=== PATIENT | female | born 1990 | race Caucasian/White ===

== ENCOUNTER 2024-06-30 17:53 | Inpatient (IN) | payer OTHER, SELFPAY ==
[2024-06-30] MEDS: BETAMETHASONE ACE/BETAMETHASONE SOD PHOS 30 MG/5 ML 12 MG IM (18:47)
[2024-06-30 18:50] LABS: Bilirubin Urine SMALL (NEGATIVE); Blood Urine LARGE (NEGATIVE); Clarity Urine CLEAR (CLEAR); Color Urine DK. YELLOW (YELLOW); Glucose Urine UA NEGATIVE (NEGATIVE); Ketones Urine 15 mg/dL (NEGATIVE); Leukocyte Esterase Urine SMALL (NEGATIVE); Nitrite Urine NEGATIVE (NEGATIVE); Protein Urine NEGATIVE (NEG/TRACE); Specific Gravity Urine >=1.030 (1.005-1.025)
[2024-06-30 18:51] LABS: Urine Microscopic Indicated YES
[2024-06-30 18:59] LABS: Bacteria Urine SMALL #/HPF (NONE SEEN); Cast Seen? NONE SEEN #/LPF (NONE SEEN); Crystals Seen? None Seen #/HPF (None Seen); Mucus Urine LARGE (NONE SEEN); RBC Urine 0-2 #/HPF (0-2); Squamous Epithelial Cell Urine MODERATE #/LPF (NONE/RARE); Urine Culture Indicated YES
[2024-06-30] MEDS: LACTATED RINGER'S SOLUTION 1,000 ML 1000 ML IV (19:00)
[2024-06-30 19:05] LABS: Amphetamine Screen Urine NEGATIVE (NEGATIVE); Barbiturates Screen Urine NEGATIVE (NEGATIVE); Benzodiazepines Screen Urine NEGATIVE (NEGATIVE); Buprenorphine Screen Urine NEGATIVE (NEGATIVE); Cannabinoid Screen Urine NEGATIVE (NEGATIVE); Cocaine Screen Urine NEGATIVE (NEGATIVE); Methadone Screen Urine NEGATIVE (NEGATIVE); Methamphetamines Screen Urine NEGATIVE (NEGATIVE); Opiate Screen Urine NEGATIVE (NEGATIVE); Oxycodone Screen Urine NEGATIVE (NEGATIVE); Phencyclidine Screen Urine NEGATIVE (NEGATIVE); Tricyclic Antidepressant Urine NEGATIVE (NEGATIVE)
[2024-06-30 19:20] VITALS: BP 123/84; PULSE 92
[2024-06-30 19:30] VITALS: BP 123/84
[2024-06-30] MEDS: PENICILLIN G POTASSIUM 5,000,000 UNIT in 0.9 % SODIUM CHLORIDE 100 ML 200 UNIT IV (19:35)
[2024-06-30 20:00] LABS: Hematocrit 30.4 % (36.0-48.0); Hemoglobin 9.6 g/dL (12.0-16.0); Mean Corpuscular HGB Conc 31.6 g/dL (29.9-35.2); Mean Corpuscular Hemoglobin 22.4 pg (26.7-34.0); Mean Corpuscular Volume 70.9 fL (81.0-99.0); Mean Platelet Volume 11.3 fL (9.5-13.5); Platelet Count 254 10^3/uL (150-450); Red Blood Count 4.29 10^6/uL (4.20-5.40); Red Cell Distribution Width 17.2 % (11.0-15.0)
[2024-06-30 22:12] VITALS: BP 134/75; PULSE 95
[2024-06-30 22:39] VITALS: TEMP 36.4
[2024-06-30] MEDS: PENICILLIN G POTASSIUM 2,500,000 UNIT in 0.9 % SODIUM CHLORIDE 50 ML 100 UNIT IV (23:30)
[2024-07-01] VITALS (41 sets, daily range): BP systolic 84–142; BP diastolic 47–96; PULSE 73–118; TEMP 35.8–37.1
[2024-07-01] MEDS: LACTATED RINGER'S SOLUTION 1,000 ML 125 ML IV ×3 (00:13→13:15)
[2024-07-01] MEDS: PENICILLIN G POTASSIUM 2,500,000 UNIT in 0.9 % SODIUM CHLORIDE 50 ML 100 UNIT IV ×3 (03:21→11:59)
[2024-07-01] MEDS: OXYTOCIN/0.9 % SODIUM CHLORIDE 10 UNITS/500 ML PLAST..BAG 6 UNIT IV (03:35)
--- NOTE | 2024-07-01 07:10 | P.OBHP_ITS ---
OB - H&P: HPI History of Present Illness Chief complaint: Contractions : 7 Para: 5 Gestational age based on last menstrual period: patient stlates her LMP was 10/20/23 and not 10/24/23 Comments: patient messaged me yesterday afternoon and states she is going to the hospital as she is having contractions that are painful and about 4 mins apart. History of Present Dating criteria: LMP confirmed by 1st trimester US care: good care complications comment: patient has history of labor and de livery Labs Blood type: B (+) positive Rubella: immune RPR/VDLR: nonreactive GBS status: unknown HBsAG: negative Review of Systems ROS Status of ROS: 10 or more systems reviewed and unremarkable except as noted in history and below PFSH PFS Medical History (Updated 07/01/24 @ 07:20 by FELIX URIBE APRN, [facility]) Depression ?F32.A - Depression, unspecified (ICD-10) Anxiety ?F41.9 - Anxiety disorder, unspecified (ICD-10) Surgical History (Updated 07/01/24 @ 01:54 by Obinna Shukla) H/O gastric sleeve ?Z90.3 - Acquired absence of stomach [part of] (ICD-10) Social History (Updated 07/01/24 @ 01:54 by Obinna Shukla) Within the past year, how often did you have a drink containing alcohol: never Within the past year, how often did you have six or more drinks on one occasion: never Score interpretation: A score less than 3 is consistent with normal alcohol consumption. Smoking status: Former smoker Non-prescribed substance use: denies use Are you now , , , , never or living with a partner: living with partner In a typical week, how many times do you talk on the telephone with family, friends, or neighbors: 3 or more times per week How often do you get together with friends or relatives: 3 or more times per week How often do you attend mosque or gnosticism services: never Little interest or pleasure in doing things: not at all Feeling down, depressed, or hopeless: not at all Feel stressed/tense/nervous/anxious/difficulty sleeping: not at all Do you think of yourself as: straight/heterosexual Gender Identity: female Meds Home Medications and Allergies Allergies Allergy/AdvReac Type Severity Reaction Status Date / Time No Known Drug Allergies Allergy Verified 06/30/24 18:22 Exam Constitutional Vital Signs, click to edit/add: Last Vital Signs Temp 98.8 F 07/01/24 06:00 Pulse 86 07/01/24 03:35 Resp 18 07/01/24 06:00 BP 125/80 07/01/24 03:35 O2 Del Method Room Air 07/01/24 06:00 Common normals: no apparent distress, average body habitus, oriented x3, no limitations, healthy appearing, alert and well nourished General appearance: cooperative Orientation/consciousness: Yes awake, Yes oriented to person, Yes oriented to place and Yes oriented to time HENMT Common normals: normocephalic Eye Common normals: EOMs intact bilaterally Neck & C-Spine Common normals: full ROM and no lymphadenopathy Lymph Lymphatic: no lymphadenopathy noted Chest Common normals: inspection of chest normal Respiratory Common normals: normal respiratory effort Effort & inspection: able to speak in complete sentences Auscultation: clear to auscultation bilaterally Cardio Common normals: regular rate and regular rhythm Rate: regular rate Rhythm: regular rhythm GI Common normals: Normal to inspection, nondistended, normoactive bowel sounds present Palpation: soft and firm (with contractions ) Common normals: no CVA tenderness Back & Pelvis Common normals: no CVA tenderness Thoracic spine/upper back: normal to inspection Lumbar spine/lower back: normal to inspection Extremity Common normals: normal to inspection and full ROM Neuro Common normals: oriented x3 Sensorium/orientation: awake, alert, oriented to person, oriented to place and oriented to time Psych Common normals: mental status grossly normal, thought process normal, cooperative, affect normal, speech normal, activity/motor behavior normal, denies hallucinations, denies homicidal ideation and denies suicidal ideation Attitude: calm Speech: normal speech Thought process: normal thought process Results Labs Labs: Short CBC 06/30/24 Range/Units 18:55 WBC 12.0 H (4.0-11.0) 10^3/uL Hgb 9.6 L (12.0-16.0) g/dL Hct 30.4 L (36.0-48.0) % Plt Count 254 (150-450) 10^3/uL Urine 06/30/24 Range/Units 18:08 Urine Color Dk. yellow (YELLOW) Urine Clarity Clear (CLEAR) Urine pH 6.0 (5.0-9.0) Ur Specific [place] >=1.030 A (1.005-1.025) Urine Protein Negative (NEG/TRACE) mg/dL Urine Glucose (UA) Negative (NEGATIVE) mg/dL OB - A/P Assessment and Plan (1) Term : (2) 36 weeks gestation of :
--- NOTE | 2024-07-01 07:21 | PM.EN ---
Event Note Event Note: patient arrived to unit yesterday 1752 with c/o contractions and pain. She states the contractions were 4 mins apart and she decided to come to [facility] because the contractions are getting more uncomfortable and she has a history of contractions and delivery. When discussing her gestational age her as I had her LMP as 10/24/23 and UMA of 07/30/24. Patient states that is definitely wrong and pulls up calendar on her phone and shows me the LMP was 10/20/23 and it is highlighted on her calendar. She states the record is wrong, on 10/24/23 I was in the middle of my period not just starting it. With LMP of 10/20/23 her UMA would be 07/26/24. First trimester US has UMA of 07/30/24. With difference of of 4 days between US and patient stated LMP is 4 days. At this time patient is insistent that her LMP was 10/20/23 making her currently 36.2 weeks gestation. I had discussion with patient regarding transfer to [facility] for higher level of care if needed for baby and she refuses. I then explained plan of care to attempt to stop contractions due to being 36.2 and she refuses Procardia and states I've had that before and I hate it and the way it makes me feel, and I don't want it. I did discuss Celestone for increasing baby's lung surfactant and she does agree to that. She is ok receiving IV fluid bolus also. I also discussed starting antibiotics due to unknown GBS and patient is in agreement to that. [id number]/24 nurse reports to me patient has SROM and moderate amount of clear, odorless fluid noted per nurse.
--- NOTE | 2024-07-01 07:41 | PM.EN ---
Event Note Event Note: to room and SVE /-2 and large amount of clear, odorless fluid noted with exam. patient is breathing with contractions and stating they are tolerable at this time. She can tell the pitocin is increasing the intensity of contractions.
[2024-07-01] MEDS: NALBUPHINE HCL 10 MG/ML AMPULE IV (10:37)
[2024-07-01] MEDS: ROPIVACAINE HCL/PF 400 MG/200 ML PREMIX 6 MG EPIDURAL (13:15)
[2024-07-01] MEDS: OXYTOCIN/0.9 % SODIUM CHLORIDE 20 UNITS/1,000 ML PLAST..BAG 125 UNIT IV (13:49)
--- NOTE | 2024-07-01 13:53 | PM.OBPRCVD ---
Procedure Intrapartal events: None Induction method: none Delivery augmentation: pitocin Delivery monitor: external FHT and external uterine Route of delivery: Episiotomy Description: none L&D Laceration Description: none Estimated blood loss (mL): 200 Anesthesia type: Epidural Disposition: floor Delivery date: 07/01/24 Gender: female presentation: vertex Placental delivery description: Spontaneous cord description: 3 Vessels
[2024-07-01] MEDS: IBUPROFEN 600 MG TABLET PO ×2 (14:25→20:10)
[2024-07-01] MEDS: BENZOCAINE/MENTHOL 85 GRAM SPRAY BOTTLE 1 APPLIC TOPICAL (14:25)
[2024-07-01] MEDS: GLYCERIN/WITCH HAZEL PADS 1 PAD TOPICAL (14:25)
[2024-07-01] MEDS: ACETAMINOPHEN 325 MG TABLET 650 MG PO (23:31)
[2024-07-02] VITALS (8 sets, daily range): BP systolic 112–135; BP diastolic 70–85; PULSE 75–86; TEMP 36.6–37.2
[2024-07-02] MEDS: IBUPROFEN 600 MG TABLET PO ×3 (05:14→21:04)
[2024-07-02 06:13] LABS: Basophils Percent Auto 0.2 % (0.2-2.0); Eosinophils Percent Auto 0.4 % (0.9-7.0); Hematocrit 26.3 % (36.0-48.0); Hemoglobin 8.1 g/dL (12.0-16.0); Immature Granulocytes Abs Auto 0.15 10^3/uL (0.00-0.03); Immature Granulocytes Pct Auto 1.4 % (0.0-0.5); Lymphocytes Absolute Auto 2.3 10^3/uL (1.2-3.8); Mean Corpuscular HGB Conc 30.8 g/dL (29.9-35.2); Mean Corpuscular Hemoglobin 22.1 pg (26.7-34.0); Mean Corpuscular Volume 71.7 fL (81.0-99.0); Mean Platelet Volume 10.8 fL (9.5-13.5); Monocytes Absolute Auto 0.5 10^3/uL (0.3-0.8); Neutrophils Absolute Auto 7.8 10^3/uL (1.4-6.5); Platelet Count 219 10^3/uL (150-450); Red Blood Count 3.67 10^6/uL (4.20-5.40); Red Cell Distribution Width 17.2 % (11.0-15.0); White Blood Count 10.9 10^3/uL (4.0-11.0)
--- NOTE | 2024-07-02 08:29 | PM.OBPN ---
OB - PN: Subj Subjective Patient comments: no complaints and pain well controlled [place] status: doing well Exam Constitutional Vital Signs, click to edit/add: Last Vital Signs Temp 99.0 F 07/02/24 00:10 Pulse 76 07/02/24 00:12 Resp 16 07/02/24 00:10 BP 112/70 07/02/24 00:12 O2 Del Method Room Air 07/02/24 00:10 Documenting provider has reviewed patient's vital signs: yes Common normals: no apparent distress Respiratory Common normals: normal respiratory effort and clear to auscultation bilaterally Cardio Common normals: regular rate and regular rhythm GI Common normals: Normal to inspection, nondistended, normoactive bowel sounds present Extremity Common normals: no calf tenderness Results Labs Labs: Short CBC 07/02/24 Range/Units 06:05 WBC 10.9 (4.0-11.0) 10^3/uL Hgb 8.1 L (12.0-16.0) g/dL Hct 26.3 L (36.0-48.0) % Plt Count 219 (150-450) 10^3/uL OB - PN: A/P Assessment and Plan (1) Term : (2) 36 weeks gestation of : Plan - Vaginal Delivery day: 1 Plan: routine care Time Spent with Patient Time: Total time spent is greater than 50% in coordination of care (as documented) at patient's floor/unit and/or counseling patient: Total time spent with greater than 50% in coordination of care (as documented) at patient's floor/unit and/or counseling patient: less than 15 minutes
[2024-07-02] MEDS: DOCUSATE SODIUM 100 MG CAPSULE PO ×2 (08:31→21:04)
[2024-07-02] MEDS: ACETAMINOPHEN 325 MG TABLET 650 MG PO (08:58)
[2024-07-03] MEDS: ACETAMINOPHEN 325 MG TABLET 650 MG PO (03:16)
[2024-07-03 08:16] VITALS: BP 142/80; PULSE 77
[2024-07-03 08:20] VITALS: BP 142/80; PULSE 77; TEMP 37.1
[2024-07-03] MEDS: IBUPROFEN 600 MG TABLET PO (08:21)
[2024-07-03] MEDS: DOCUSATE SODIUM 100 MG CAPSULE PO (08:21)
--- NOTE | 2024-07-03 09:11 | P.OBPN_ITS ---
OB - PN: Subj Subjective Patient comments: no complaints and pain well controlled [place] status: doing well Exam Constitutional Vital Signs, click to edit/add: Last Vital Signs Temp 98.8 F 07/03/24 08:20 Pulse 77 07/03/24 08:20 Resp 16 07/03/24 08:20 BP 142/80 H 07/03/24 08:20 O2 Del Method Room Air 07/03/24 08:20 Documenting provider has reviewed patient's vital signs: yes Common normals: no apparent distress Respiratory Common normals: normal respiratory effort and clear to auscultation bilaterally Cardio Common normals: regular rate and regular rhythm GI Common normals: Normal to inspection, nondistended, normoactive bowel sounds present Extremity Common normals: no calf tenderness OB - PN: A/P Assessment and Plan (1) Term : (2) 36 weeks gestation of : Plan - Vaginal Delivery day: 2 Plan: routine care, discharge home and follow up 6 weeks Time Spent with Patient Time: Total time spent is greater than 50% in coordination of care (as documented) at patient's floor/unit and/or counseling patient: Total time spent with greater than 50% in coordination of care (as documented) at patient's floor/unit and/or counseling patient: less than 15 minutes
== END 2024-07-03 13:20 | disposition home or self-care (01) | DRG 560 ==
PROVIDERS: Obstetrics & Gynecology; Admitting Provider Midwife; Visit Provider Midwife
DX: O60.14X0 Preterm labor third trimester with preterm delivery third trimester, not applicable or unspecified (principal); O99.844 Bariatric surgery status complicating childbirth; Z37.0 Single live birth; Z3A.36 36 weeks gestation of pregnancy; Z87.891 Personal history of nicotine dependence
CPT/HCPCS: 36415; 59025; 59050; 59410; 80307; 81001; 85025; 85027; 86850; 86900; 86901; 87086; J0702; J2300; J2540; J2795